=== PATIENT | female | born 1970 | race Caucasian/White ===

== ENCOUNTER 2023-07-30 06:19 | Emergency (ER) | payer OTHER, SELFPAY ==
[2023-07-30 06:20] VITALS: BP 150/83; PULSE 86; RESP 16; TEMP 37; O2SAT 95; BMI 34.9
--- NOTE | 2023-07-30 06:47 | RAD_ITS ---
INDICATION: injury EXAMINATION/TECHNIQUE: X-RAY - LEFT XR Ankle Min 3 Views 3 VIEWS COMPARISON: FINDINGS: BONES: Fracture distal tibia at the medial malleolus with at least 1 cm of lateral displacement. Probable fracture posterior malleolus. Oblique fracture distal fibula comminuted with 1 cm posterior lateral displacement of the distal fragment. JOINTS: The talus is displaced laterally with relation to the tibia with marked widening of the medial aspect of the ankle mortise. SOFT TISSUES: Diffuse soft tissue swelling. RAD/Ankle min 3 Views IMPRESSION: Acute displaced fractures distal tibia and fibula with subluxation at the tibiotalar joint. Electronically Signed: Kati Arambula MD at 7:07 EDT ,
--- NOTE | 2023-07-30 07:14 | EDS_ITS ---
HPI History of Present Illness Chief Complaint: Lower Extremity Injury Informant: patient Occured/Mechanism Comment: Tripped over a step that she was walking down while walking her dog Onset/Context/Timing Onset: Yesterday Context: Sudden Onset Timing: Continuous Quality of Pain: Aching Location: Left ankle Current Severity: Moderate Maximum Severity: Severe Associated Symptoms Associated Symptoms: Positive for Loss of Funtion Narrative Narrative: Patient injured her left ankle last night, she thinks she may have broken it, and this morning still not able to put any weight on it so she presents for evaluation. A little bit of tingling in the area of the ankle where she is painful and swollen but not in her toes distally. No other injuries. PFSH PFSH Medical History no medical history no medical history Home Medications NK 07/30/23 [History Last Taken Unknown] oxycodone-acetaminophen 5 mg-325 mg tablet 1 tab PO Q6H PRN PRN Pain 3 days #12 TABLETS 07/30/23 [Rx Last Taken Unknown] Allergy/AdvReac Type Severity Reaction Status Date / Time No Known Allergies Allergy Verified 07/30/23 06:22 Social History Smoking Status: Never smoker ROS ROS ED Constitutional Constitutional ED: Denies chills or fever(s) Musculoskeletal Musculoskeletal: Reports extremity pain; Denies neck pain Integumentary Denies Abrasions, rash or wounds Neurologic Neurologic: Denies paresthesias or weakness EXAM Physical Exam Const Vital Signs: 07/30/23 06:20 Temperature 98.6 F Temperature Source Temporal Pulse Rate 86 Respiratory Rate 16 Blood Pressure 150/83 H Blood Pressure Mean 105 Pulse Ox 95 Oxygen Delivery Method Room Air Positive well nourished and well developed General Appearance ED: well developed and NAD Neck full ROM and supple Back/Spine normal ROM and normal to inspection Extremity Extremity Narrative: Limited range of motion left ankle due to pain. It is diffusely swollen. Tenderness both medially and laterally, more medially. Foot bones are nontender, proximal fibula nontender. Good range of motion of the knee and the hip without difficulty or pain. Right foot is tender laterally at the fifth metatarsal, there is some ecchymosis and swelling but no other bony tenderness of the foot and ankle there, with forced inversion of the foot she has no pain. Otherwise extremities are atraumatic. Neuro oriented x3, no focal motor deficits and no sensory deficits noted Sensorium / Orientation: alert Psych mental status grossly normal and thought process normal Skin no wounds Skin Narrative: Skin intact left lower extremity Rashes: no rashes MDM MDM MDM Narrative Medical decision making narrative: Three-view x-ray series of the left ankle shows at least a bimalleolar fracture with lateral displacement and talar shift/subluxation. Discussed with Dr. Conklin, he recommends splinting her and reducing it, in addition to obtaining a CT of the fracture for surgical planning. The patient feels she will be able to go home with crutches and nonweightbearing, so this will be set up as an outpatient. Her right foot appeared to be injured as well. Three-view x-ray series of that shows what appears to be more likely an avulsion fracture of the base of the fifth metatarsal, but to ensure this is not a Dickey fracture, which would make her nonweightbearing on both lower extremities, I awaited the radiology interpretation and again discussed with ortho Dr. Conklin, who will see her in follow up, w/ Postop shoe on the right foot, WBAT. Radiography Diagnostic Testing: Clinical Impression(s) from Imaging Studies Ankle X-Ray 07/30/23 06:47 IMPRESSION: Acute displaced fractures distal tibia and fibula with subluxation at the tibiotalar joint. Electronically Signed: Kati Arambula MD at 7:07 EDT , Ankle X-Ray 07/30/23 08:10 IMPRESSION: Satisfactory reduction. Electronically Signed: Neil Crowder MD at 8:33 EDT , Foot X-Ray 07/30/23 08:10 IMPRESSION: Nondisplaced transverse fracture at the base of the fifth metatarsal with overlying soft tissue swelling. Electronically Signed: Neil Crowder MD at 8:34 EDT , Management Discussion w/another healthcare provider: Appointment Scheduler (ortho Dr. Conklin) Procedures Lower Extremity Splints Lower Extremity Splint: Orthoglass (Short leg posterior with sugar-tong, with additional padding at the ankle) Splint Fabrication: Fabricated (Neurovascularly intact distally after placement) Location: Left Other Procedures Procedure(s): Closed reduction left ankle displaced fracture/subluxation: While fixating splint above, performed closed manual reduction after discussing pros and cons. Patient tolerated well, pretreated with IV fentanyl 50 mcg, no complications. 2 view postreduction left ankle x-ray shows near anatomic reduction, on my interpretation. Discharge Plan Triage Chief Complaint: Lower Extremity Injury ED Provider: Godfrey Blanca Dx/Rx/DC Orders Clinical Impression: Closed displaced bimalleolar fracture of left ankle, Closed nondisplaced fracture of fifth right metatarsal bone Instructions: Using Crutches: [id number], ED Ankle Fracture, ED Fracture, Foot Prescriptions: New oxycodone-acetaminophen [oxycodone-acetaminophen] 5-325 mg tablet 1 tab PO Q6H PRN PRN (Reason: Pain) 3 Days Qty: 12 0RF No Action NK Primary Care Provider: Gabriella Ramirez NP Referrals: Santosh Conklin MD [Med Staff - Active Staff] - As soon as possible (call for appt) Gabriella Ramirez [employer], [employer] [Primary Care Provider] - Activity Restrictions/Additional Instructions: with your ortho shoe, you may bear weight as tolerated on your right foot. Disposition Disposition: Home, Self Care
[2023-07-30] MEDS: fentaNYL 100 MCG/2 ML Ampul 50 MCG IV (07:32)
--- NOTE | 2023-07-30 08:10 | RAD_ITS ---
STUDY: X-RAY - RIGHT FOOT CLINICAL: Female, 52 years old. Injury TECHNIQUE: 3 view(s) of the foot. COMPARISON: None. FINDINGS: Calcaneal spurs. Normal visualized subtalar, talonavicular, calcaneocuboid, tarsal and tarsometatarsal articulations. Nondisplaced transverse fracture at the base of the fifth metatarsal. Normal metatarsophalangeal joint of the great toe. Normal tibial and fibular sesamoid bones. Normal interphalangeal joint of the great toe. Normal phalanges of the great toe. Normal second through fifth metatarsophalangeal joints. Normal interphalangeal joints and phalanges of the lesser toes. Soft tissue swelling. RAD/Foot min 3 Views IMPRESSION: Nondisplaced transverse fracture at the base of the fifth metatarsal with overlying soft tissue swelling. Electronically Signed: Neil Crowder MD at 8:34 EDT ,
--- NOTE | 2023-07-30 08:10 | RAD_ITS ---
STUDY: X-RAY - LEFT ANKLE REASON FOR EXAM: Female, 52 years old. Postreduction -- PORTABLE TECHNIQUE: 2 view(s) of the ankle. COMPARISON: Comparison is made with prior study done earlier today. FINDINGS: Satisfactory reduction of the distal fibular and medial malleolar fractures. Soft tissue swelling. RAD/Ankle 2 Views IMPRESSION: Satisfactory reduction. Electronically Signed: Neil Crowder MD at 8:33 EDT ,
--- NOTE | 2023-07-30 08:12 | CT_ITS ---
STUDY: CT LEFT ANKLE WITHOUT CONTRAST REASON FOR EXAM: Female, 52 years old. Fracture, surgical planning RADIATION DOSAGE (If Supplied By Facility): CTDIvol = ( 15.35 ) mGy, DLP = ( 395.98 ) mGycm TECHNIQUE: Thin section transaxial imaging of the ankle was obtained, with sagittal and coronal reconstructed images. Individualized dose optimization techniques were used for this CT. COMPARISON: None. FINDINGS: Nondisplaced oblique fracture of the distal fibula. Transverse avulsion fracture of the medial malleolus. Nondisplaced fracture of the posterior malleolus. The fracture line extends of the posterior articular surface of the distal tibia. Asymmetry of the ankle mortise. Normal talus, calcaneus, navicular and cuboid tarsal bones. Normal subtalar, talonavicular and calcaneocuboid articulations. Normal navicular-cuneiform, cuneiform tarsal bones and intercuneiform articulations. Normal tarsometatarsal articulations and visualized metatarsi. Diffuse soft tissue swelling. CT/Extremity Lower without Contra IMPRESSION: Nondisplaced medial malleolar fracture as well as fracture through the posterior malleolus of the distal tibia. The fracture extends to the articular surface. Nondisplaced oblique fracture of the distal fibula. Asymmetry of the ankle mortise. Diffuse soft tissue swelling. Electronically Signed: Neil Crowder MD at 9:00 EDT ,
[2023-07-30 09:14] VITALS: BP 134/75; RESP 16
== END 2023-07-30 09:15 | disposition home or self-care (01) ==
PROVIDERS: Emergency Provider Emergency Medicine; PCP Nurse Practitioner Family; Visit Provider Emergency Medicine
DX: S82.842A Displaced bimalleolar fracture of left lower leg, initial encounter for closed fracture (principal); S92.354A Nondisplaced fracture of fifth metatarsal bone, right foot, initial encounter for closed fracture; X58.XXXA Exposure to other specified factors, initial encounter
CPT/HCPCS: 73600; 73610; 73630; 73700; 96374; 99285; A4216

== ENCOUNTER → 2023-08-03 | Outpatient (CLI) | payer OTHER, SELFPAY ==
--- NOTE | 2023-08-03 10:12 | EKG12_ITS ---
Test Reason : PRE OP Blood Pressure : / mmHG Vent. Rate : 069 BPM Atrial Rate : 069 BPM P-R Int : 170 ms QRS Dur : 084 ms QT Int : 386 ms P-R-T Axes : 051 049 038 degrees QTc Int : 413 ms Normal sinus rhythm Normal ECG Confirmed by TINA MOSELEY, MAUREEN ([id number]), commissioning editor GERA KEITH ([id number]) on 08/04/2023 11:52:33 A M Referred By: Madan Mckeon Confirmed By:ELIANA WILDER MD
[2023-08-03 11:19] LABS: Hemoglobin 12.9 g/dL (12.0-15.0); Mean Corp Hgb Conc 32.3 g/dL (32-36); Mean Corpuscular Hgb 32.3 pg (27.0-32.0); Mean Platelet Vol. 9.3 fl (6.2-12.0); Platelet Count 292 K/mm3 (150-450); RBC Distribution Width CV 11.4 % (11.6-14.6); RBC Distribution Width SD 41.8 fl (35.1-43.9); White Blood Count 5.7 K/mm3 (4.4-11.0)
[2023-08-03 12:08] LABS: Anion Gap 5 (5-15); BUN 12 mg/dL (7-18); BUN/Creat Ratio 23.9 RATIO (10-20); Calcium,Total 9.1 mg/dL (8.5-10.1); Chloride 100 mmol/L (98-107); EST Glomerular Filtration Rate 135 mL/min (>60); Est Glom Filt Rate - Afr Amer 164 mL/min (>60); Glucose 89 mg/dL (74-106); Potassium 3.6 mmol/L (3.5-5.1); Sodium Level 133 mmol/L (136-145)
== END | disposition home or self-care (01) ==
PROVIDERS: PCP Nurse Practitioner Family; Referring Provider Physician Assistant Surgical; Visit Provider Physician Assistant Surgical
DX: Z01.810 Encounter for preprocedural cardiovascular examination (principal)
CPT/HCPCS: 36415; 80048; 85027; 93005